=== PATIENT | male | born 1965 | race Caucasian/White ===

== ENCOUNTER 2018-11-29 06:10 | Inpatient (IN) | payer OTHER ==
[~2018-11-29] VITALS: Ht 180.3 cm; Wt 65.8 kg
[~2018-11-29 06:10] MED LIST: ABILIFY IM; FERR325T72 PO; LEVO88TA2 PO; PANT40TA77 PO
[2018-11-29] MEDS ORDERED: IV NORMAL SALINE 1000ML BAG 1,000 ML IV SCH (11:21)
[2018-11-29] MEDS ORDERED: ZOLPIDEM 5 MG TABLET. PO PRN (11:30)
[2018-11-29] MEDS ORDERED: MAG HYDROX/ALUMINUM HYD/SIMETH 30 ML ORAL.SUSP PO PRN (11:30)
[2018-11-29] MEDS ORDERED: ONDANSETRON PF 4 MG/2 ML VIAL. IV PRN (11:30)
[2018-11-29] MEDS ORDERED: oxyCODONE IR 5 MG TABLET PO PRN (11:30)
[2018-11-29] MEDS ORDERED: MORPHINE SULFATE 2 MG/ML VIAL. IV PRN (11:30)
[2018-11-29] MEDS ORDERED: PANTOPRAZOLE IV PUSH 40 MG VIAL. IVP ONE (11:30)
[2018-11-29] MEDS ORDERED: PANTOPRAZOLE SODIUM IV DRIP 80 MG in IV NORMAL SALINE 100ML 100 ML IV SCH (11:30)
[2018-11-29] MEDS ORDERED: PROCHLORPERAZINE 10 MG/2 ML VIAL. IV PRN (11:30)
[2018-11-29] MEDS ORDERED: OCTREOTIDE 500 MCG in IV NORMAL SALINE 100ML 100 ML IV PRN (11:30)
[2018-11-29] MEDS ORDERED: ACETAMINOPHEN 325 MG TABLET. PO PRN (11:30)
[2018-11-29 11:35] VITALS: BP 112/70
[2018-11-29] MEDS ORDERED: ABILIFY 400 MG IM (12:40)
[2018-11-29] MEDS ORDERED: RISP1TAB43 PO (12:40)
--- NOTE | 2018-11-29 12:57 | NUR ---
Allergies and reactions INR 1.1 BUN 18 Cr 0.8 Platelets 454 Blood culture done N/A blood culture results Order Verified yes Consent signed yes Previous PICC placement yes- right upper arm Past Medical/Surgical history and current diagnosis reviewed yes Patient Medical /Surgical History Related to PICC line placement History of bleeding, bruising, clotting disorder Past central line or venous access device placement Special considerations for PICC line placement None PICC placement indication Multiple/ Frequent blood draws, Poor peripheral intravenous access name of PICC Nurse Nancy Meléndez RN
--- NOTE | 2018-11-29 13:22 | PDOC1 ---
History and Physical Date of Admission Date of Admission DATE: 11/29/18 TIME: 13:17 Identification/Chief Complaint Chief Complaint Spitting up blood Source Source: Caregiver, Chart review, Patient History of Present Illness History of Present Illness 53-year-old white male who lives in independent living, somebody gives him his meds He takes less than 5 meds a day, history of Lissa Pagan REndau syndrome. History of PEDRO, ferrous sulfate is one of his home meds, hemoglobin 9, WBC 7 with platelets 459. Transferred from [place]. MCV is 62. Initial reports was hematemesis 3. He claims it was about 2 teaspoons. Hard stick, has had a PICC line before - I ordered one again today, hard stick per RN Needed blood transfusion before PICC team here-I have ordered BMP at [facility], unimpressive, NEg UA< MIld albumin loss VS ok Past Medical History CENTRAL NERVOUS SYSTEM: Seizure Heme/Onc: Iron deficiency Anemia, Other Psych: Schizophrenia Endocrine: Hypothyroidism Past Surgical History Past Surgical History: Other Family History Family History: Obesity Social History Smoke: No ALCOHOL: none Drugs: None Current Medications Current Medications Current Medications Sodium Chloride 1,000 ml @ 100 mls/hr Q10H IV ; Start 11/29/18 at 11:21; Stop 11/29/18 at 21:20 Ondansetron HCl (Zofran) 4 mg PRN Q6HRS PRN IV NAUSEA/VOMITING; Start 11/29/18 at 11:30 Prochlorperazine Edisylate (Compazine) 10 mg PRN Q6HRS PRN IV NAUSEA/VOMITING, 2ND CHOICE; Start 11/29/18 at 11:30 Al Hydroxide/Mg Hydroxide (Mylanta Plus Xs) 30 ml PRN Q3HRS PRN PO HEARTBURN / GAS; Start 11/29/18 at 11:30 Zolpidem Tartrate (Ambien) 5 mg PRN QHS PRN PO INSOMNIA, MAY REPEAT IN 1HR; Start 11/29/18 at 11:30 Oxycodone HCl (Roxicodone) 5 mg PRN Q3HRS PRN PO BREAKTHROUGH PAIN; Start 11/29/18 at 11:30 Morphine Sulfate (Morphine Sulfate) 1 mg PRN Q1HR PRN IV PAIN; Start 11/29/18 at 11:30 Acetaminophen (Tylenol) 650 mg PRN Q6HRS PRN PO Headaches, Temp > 101.5F; Start 11/29/18 at 11:30 Pantoprazole Sodium (PROTONIX VIAL for IV PUSH) 40 mg 1X ONCE IVP ; Start 11/29/18 at 11:30; Stop 11/29/18 at 11:31; Status DC Octreotide Acetate 500 mcg/ Sodium Chloride 101 ml @ 0 mls/hr CONT PRN IV SEE I/O RECORD; Start 11/29/18 at 11:30 Pantoprazole Sodium 80 mg/ Sodium Chloride 100 ml @ 10 mls/hr Q10H IV ; Start 11/29/18 at 11:30; Stop 11/29/18 at 21:29 Levothyroxine Sodium 44 mcg/ Sodium Chloride 5 ml @ 100 mls/hr Q3DAYS IVP ; Start 12/05/18 at 09:00 Active Scripts Active Reported Risperdal (Risperidone) 1 Mg Tablet 1 Mg PO QHS PRN [Abilify 400MG Im Inj] 400 Mg IM QMONTH Allergies Allergies: Coded Allergies: aspirin (Verified Allergy, Mild, 06/19/15) ROS Review of System As per history of present illness, the rest of ROS 14 point negative Physical Exam General: Alert, Oriented X3, Cooperative, No acute distress HEENT: Atraumatic, PERRLA, EOMI Lungs: Clear to auscultation, Normal air movement Heart: S1S2, RRR, no thrills, no rubs, no gallops, no murmurs Cardiovascular: S1, S2 Abdomen: Normal bowel sounds, Soft, No tenderness, No hepatosplenomegaly, No masses Male Genitals Exam: normal genitalia, normal prostate Rectal Exam: not examined PELVIC: Nml ext genitalia Extremities: No clubbing, No cyanosis, No edema, Normal pulses, No tenderness/swelling Skin: No rashes, No breakdown, No significant lesion Neuro: Normal gait, Normal speech, Strength at 5/5 X4 ext, Normal tone, Sensation intact, Cranial nerves 3-12 NL, Reflexes 2+ Psych/Mental Status: Mental status NL, Mood NL Vitals Vitals Vital Signs Date Time Temp Pulse Resp B/P (MAP) Pulse Ox O2 Delivery O2 Flow Rate FiO2 11/29/18 11:35 97.4 50 18 112/70 (84) 97 Room Air 97.4 VTE Prophylaxis Ordered VTE Prophylaxis Devices: Contraindicated VTE Pharmacological Prophylaxi: Contraindicated Assessment/Plan Assessment/Plan hematemesis 3 Microcytic anemia Reactive thrombocytosis Spitting up blood? Osler pagan rendau syndrome Independent living resident Moderate PCM Seizures on AED PLAN: HE is a transfer from [place], basic labs Nothing by mouth PPI drip 1 Sandostatin drip 1 I have ordered, because I thought initially this was hematemesis [address] scan reviewed Consult GI I have reconciled home meds including AEDs I think he will be okay for sips with pills Further recs pending course ok for pICC insertion dw MARGARITA DAVIS MD Nov 29, 2018 13:22
--- NOTE | 2018-11-29 13:30 | NUR ---
Procedure: Following complete explanation of the PICC procedure including the indications, risks, and potential complications, informed consent was obtained. The possibility for infection was discussed along with signs, symptoms, and prevention. All the questions were answered. Written and verbal patient education was provided. Hand hygiene performed. Standardized central line checklist was utilized. The patient was placed in the supine position, the arm was prepped with chlorhexidine and patient draped with maximum sterile barrier. 1.5 mL 1% lidocaine was infiltrated into the skin to provide local anesthesia. A thorough assessment of left upper extremity completed. Using real-time ultrasound guidance and standardized micro puncture set, the brachial vein was punctured and a peel away sheath was placed using the modified Seldinger technique. A tip location device was used to ensure adequate catheter placement. The catheter was secured using a securement device and an antimicrobial patch was applied directly on the insertion site followed by a transparent dressing. All ports withdraw blood and flush without resistance. Patient tolerated the procedure without apparent complication(s). Double Lumen Power PICC placement successful and uncomplicated. Placement verified by EKG tip confirmation system and/or chest x-ray. Tip located in the CAJ/SVC. Complications: None 43 cm inserted with 1cm visible.
[2018-11-29 14:52] LABS: PROTHROMBIN TIME PATIENT 15.6 SEC (11.7-14.0)
[2018-11-29 15:00] VITALS: BP 108/74
[2018-11-29 15:04] LABS: CALCIUM 8.3 mg/dL (8.5-10.1); GFR 78.8; POTASSIUM 4.2 mmol/L (3.5-5.1)
[2018-11-29 15:10] LABS: BASO # 0.1 x10^3/uL (0.0-0.2); BASO % 1 % (0-3); EOS # 0.1 x10^3/uL (0.0-0.7); EOS % 2 % (0-3); HEMATOCRIT 29.3 % (39.0-53.0); HEMOGLOBIN 8.6 g/dL (13.0-17.5); LYMPH # 1.7 x10^3/uL (1.0-4.8); LYMPH % 29 % (24-48); MEAN CORPUSCULAR HEMOGLOBIN 18 pg (25-35); MEAN CORPUSCULAR HGB CONC 29 g/dL (31-37); MEAN CORPUSCULAR VOLUME 60 fL (79-100); MONO # 0.3 x10^3/uL (0.0-1.1); MONO % 5 % (0-9); NEUT # 3.8 x10^3/uL (1.8-7.7); NEUT % 63 % (31-73); PLATELET COUNT 421 x10^3/uL (140-400); RED BLOOD COUNT 4.84 x10^6/uL (4.30-5.70); RED CELL DISTRIBUTION WIDTH 20.2 % (11.5-14.5)
--- NOTE | 2018-11-29 15:11 | PDOC2 ---
GI CONSULT Reason For Consult: Hematemesis x 3 HPI: HPI: 53 y/o male transferred from [facility]. Tells me he had abd pain "all over" and then "spit out" red blood last night or early this morning. Denies hemoptysis and hematemesis. "Then I almost threw up but I didn't." H/o PEDRO and Fmlnu-Czdce-Skaxk syndrome. Has epistaxis 1-2 times daily, but can't recall if this last occurred on Thursday or Thursday. H/o previous EGDs w/ cautery of AVMs, additional h/o pulmonary AVM. H/o heartburn and bloating after eating, untreated. No dysphagia. Alternating bowel habits - no hematochezia or melena. Describes some early satiety w/ stable weight. Additional h/o hypothyroidism - doesn't take medication for this because voices tell him not to (which is also why he doesn't take iron). No PUD, GB, liver, or pancreas history. No NSAIDs or ASA. No major esophageal abnormality on EGD by Dr. Brandy Kong in 05/2015. Previous notes mention colonoscopy at some point, but now he can't recall. At [facility]: BUN 18, Cr 0.8, Hgb 9, MCV 62, plt 484, RDW 20, INR 1.1. Recent Hgb in 9-10 range, some 11-12s noted earlier this year. On CT A/P w/o contrast: minimal bilateral pleural effusion (R > L), small amount of pelvic free fluid, no additional acute abnormality. Also noted unchanged hepatic cyst. No bleeding since admission per nurse. 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 FH: Family History: Other (sibling - diverticular disease) Social History: Smoke: No ALCOHOL: none Drugs: None ROS: GEN: Denies fevers, chills, sweats HEENT: +nosebleeds CV: Denies chest pain RESP: ?cough GI: Per HPI : Denies hematuria, dysuria ENDO: Denies weight changes NEURO: Denies confusion, dizziness MSK: Denies weakness, joint pain/swelling SKIN: Denies jaundice, pruritus Vitals: Vitals: Vital Signs Date Time Temp Pulse Resp B/P (MAP) Pulse Ox O2 Delivery O2 Flow Rate FiO2 11/29/18 11:35 97.4 50 18 112/70 (84) 97 Room Air 97.4 Labs: Labs: Laboratory Tests Test 11/29/18 14:35 Prothrombin Time 15.6 SEC (11.7-14.0) Prothromb Time International Ratio 1.3 (0.8-1.1) Allergies: Coded Allergies: aspirin (Verified Allergy, Mild, 06/19/15) Medications: Current Medications Medications (Trade) Dose Ordered Sig/Jose Route PRN Reason Start Time Stop Time Status Last Admin Dose Admin Sodium Chloride 1,000 ml @ 100 mls/hr Q10H IV 11/29/18 11:21 11/29/18 21:20 11/29/18 14:39 Pantoprazole Sodium (PROTONIX VIAL for IV PUSH) 40 mg 1X ONCE IVP 11/29/18 11:30 11/29/18 11:31 DC 11/29/18 14:39 Octreotide Acetate 500 mcg/ Sodium Chloride 101 ml @ 0 mls/hr CONT PRN IV SEE I/O RECORD 11/29/18 11:30 11/29/18 14:41 DC 11/29/18 14:41 Pantoprazole Sodium 80 mg/ Sodium Chloride 100 ml @ 10 mls/hr Q10H IV 11/29/18 11:30 11/29/18 21:29 11/29/18 14:41 PE: GEN: NAD HEENT: Atraumatic, PERRLA LUNGS: CTAB HEART: RRR, no murmurs ABD: NABS, S/ND/NT, no masses EXTREMITY: No edema SKIN: No rashes, no jaundice NEURO/PSYCH: A & O 3 A/P: A/P: H/o OWR w/ gut and pulm AVMs Chronic PEDRO Frequent nosebleeds Hypothyroidism Schizophrenia CRC screen - unclear Hepatic cyst -- Suspect historian though not clearly "hematemesis." Observe. Continue PPI in some form. Iron if he'd take it. JOY BUITRAGO Nov 29, 2018 15:11
[2018-11-29 15:44] LABS: ANISOCYTOSIS MOD; HYPOCHROMIA MARKED; MICROCYTOSIS MARKED; PLT ESTIMATE INCREASED (ADEQUATE)
[2018-11-29 15:45] LABS: OVALOCYTES OCC
[2018-11-29 19:49] VITALS: BP 108/62
[2018-11-29 23:33] VITALS: BP 102/62
[2018-11-30 03:45] VITALS: BP 104/64
[2018-11-30 06:45] LABS: BASO % 1 % (0-3); EOS # 0.1 x10^3/uL (0.0-0.7); EOS % 2 % (0-3); HEMATOCRIT 30.5 % (39.0-53.0); HEMOGLOBIN 8.7 g/dL (13.0-17.5); LYMPH # 1.5 x10^3/uL (1.0-4.8); LYMPH % 21 % (24-48); MEAN CORPUSCULAR HEMOGLOBIN 18 pg (25-35); MEAN CORPUSCULAR HGB CONC 29 g/dL (31-37); MEAN CORPUSCULAR VOLUME 61 fL (79-100); MONO # 0.4 x10^3/uL (0.0-1.1); MONO % 6 % (0-9); NEUT # 5.1 x10^3/uL (1.8-7.7); NEUT % 70 % (31-73); PLATELET COUNT 387 x10^3/uL (140-400); RED BLOOD COUNT 4.98 x10^6/uL (4.30-5.70); RED CELL DISTRIBUTION WIDTH 20.3 % (11.5-14.5); WHITE BLOOD COUNT 7.2 x10^3/uL (4.0-11.0)
[2018-11-30 06:53] LABS: CALCIUM 8.1 mg/dL (8.5-10.1); CREATININE 1.1 mg/dL (0.7-1.3); GFR 70.6; POTASSIUM 4.2 mmol/L (3.5-5.1)
[2018-11-30 07:00] VITALS: BP_SYST 107; BP_SYST 134; BP_DIAS 60
[2018-11-30] MEDS ORDERED: PANTOPRAZOLE IV PUSH 40 MG VIAL. IVP SCH (09:30)
[2018-11-30] MEDS ORDERED: IV NORMAL SALINE 1000ML BAG 1,000 ML IV SCH (10:00)
[2018-11-30 11:00] VITALS: BP 95/63
--- NOTE | 2018-11-30 11:07 | PDOC ---
Subjective: Subjective: "I was feeling weak but now I'm stronger." Was up walking. No bleeding. Maybe a little upper abd discomfort. Hungry. Objective: Objective: No bleeding per nurse. Vital Signs: Vital Signs Date Time Temp Pulse Resp B/P (MAP) Pulse Ox O2 Delivery O2 Flow Rate FiO2 11/30/18 07:00 98.1 74 18 134/60 (84) 95 Room Air 98.1 Labs: Laboratory Tests Test 11/29/18 14:35 11/30/18 06:00 White Blood Count 6.0 x10^3/uL 7.2 x10^3/uL Red Blood Count 4.84 x10^6/uL 4.98 x10^6/uL Hemoglobin 8.6 g/dL 8.7 g/dL Hematocrit 29.3 % 30.5 % Mean Corpuscular Volume 60 fL 61 fL Mean Corpuscular Hemoglobin 18 pg 18 pg Mean Corpuscular Hemoglobin Concent 29 g/dL 29 g/dL Red Cell Distribution Width 20.2 % 20.3 % Platelet Count 421 x10^3/uL 387 x10^3/uL Neutrophils (%) (Auto) 63 % 70 % Lymphocytes (%) (Auto) 29 % 21 % Monocytes (%) (Auto) 5 % 6 % Eosinophils (%) (Auto) 2 % 2 % Basophils (%) (Auto) 1 % 1 % Neutrophils # (Auto) 3.8 x10^3/uL 5.1 x10^3/uL Lymphocytes # (Auto) 1.7 x10^3/uL 1.5 x10^3/uL Monocytes # (Auto) 0.3 x10^3/uL 0.4 x10^3/uL Eosinophils # (Auto) 0.1 x10^3/uL 0.1 x10^3/uL Basophils # (Auto) 0.1 x10^3/uL 0.0 x10^3/uL Platelet Estimate Increased Hypochromasia Marked Anisocytosis Mod Microcytosis Marked Ovalocytes Occ Prothrombin Time 15.6 SEC Prothromb Time International Ratio 1.3 Sodium Level 136 mmol/L 138 mmol/L Potassium Level 4.2 mmol/L 4.2 mmol/L Chloride Level 102 mmol/L 104 mmol/L Carbon Dioxide Level 27 mmol/L 25 mmol/L Anion Gap 7 9 Blood Urea Nitrogen 17 mg/dL 20 mg/dL Creatinine 1.0 mg/dL 1.1 mg/dL Estimated GFR (Cockcroft-Gault) 78.8 70.6 Glucose Level 76 mg/dL 61 mg/dL Calcium Level 8.3 mg/dL 8.1 mg/dL Hepatitis A IgM Antibody Nonreactive Hepatitis B Surface Antigen Nonreactive Hepatitis B Core IgM Antibody Nonreactive Hepatitis C IgG Antibody Nonreactive PE: GEN: NAD LUNGS: CTAB HEART: RRR ABD: NABS, S/ND/NT NEURO/PSYCH: A & O 3, flat A/P: H/o OWR w/ gut and pulm AVMs Chronic PEDRO - stable Schizophrenia -- No ongoing concern for GI bleeding. Try karin ADASilvestre, PO PPI. JOY BUITRAGO Nov 30, 2018 11:06
--- NOTE | 2018-11-30 11:45 | PDOC ---
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-on ferrous sulfate as home meds Plan: Agree with liquid diet H&H tomorrow If stable might be able to go back to independent living tomorrow Vitals Vitals Vital Signs Date Time Temp Pulse Resp B/P (MAP) Pulse Ox O2 Delivery O2 Flow Rate FiO2 11/30/18 11:00 97.6 66 20 95/63 (74) 99 Room Air 97.6 Physical Exam General: Alert, Oriented X3, Cooperative, No acute distress Lungs: Clear Abdomen: Normal bowel sounds, Soft, No tenderness, No hepatosplenomegaly, No masses Extremities: No clubbing, No cyanosis, No edema, Normal pulses, No tenderness/swelling Skin: No rashes, No breakdown, No significant lesion Labs LABS Laboratory Tests Test 11/29/18 14:35 11/30/18 06:00 White Blood Count 6.0 x10^3/uL (4.0-11.0) 7.2 x10^3/uL (4.0-11.0) Red Blood Count 4.84 x10^6/uL (4.30-5.70) 4.98 x10^6/uL (4.30-5.70) Hemoglobin 8.6 g/dL (13.0-17.5) 8.7 g/dL (13.0-17.5) Hematocrit 29.3 % (39.0-53.0) 30.5 % (39.0-53.0) Mean Corpuscular Volume 60 fL (79-100) 61 fL (79-100) Mean Corpuscular Hemoglobin 18 pg (25-35) 18 pg (25-35) Mean Corpuscular Hemoglobin Concent 29 g/dL (31-37) 29 g/dL (31-37) Red Cell Distribution Width 20.2 % (11.5-14.5) 20.3 % (11.5-14.5) Platelet Count 421 x10^3/uL (140-400) 387 x10^3/uL (140-400) Neutrophils (%) (Auto) 63 % (31-73) 70 % (31-73) Lymphocytes (%) (Auto) 29 % (24-48) 21 % (24-48) Monocytes (%) (Auto) 5 % (0-9) 6 % (0-9) Eosinophils (%) (Auto) 2 % (0-3) 2 % (0-3) Basophils (%) (Auto) 1 % (0-3) 1 % (0-3) Neutrophils # (Auto) 3.8 x10^3/uL (1.8-7.7) 5.1 x10^3/uL (1.8-7.7) Lymphocytes # (Auto) 1.7 x10^3/uL (1.0-4.8) 1.5 x10^3/uL (1.0-4.8) Monocytes # (Auto) 0.3 x10^3/uL (0.0-1.1) 0.4 x10^3/uL (0.0-1.1) Eosinophils # (Auto) 0.1 x10^3/uL (0.0-0.7) 0.1 x10^3/uL (0.0-0.7) Basophils # (Auto) 0.1 x10^3/uL (0.0-0.2) 0.0 x10^3/uL (0.0-0.2) Platelet Estimate Increased (ADEQUATE) Hypochromasia Marked Anisocytosis Mod Microcytosis Marked Ovalocytes Occ Prothrombin Time 15.6 SEC (11.7-14.0) Prothromb Time International Ratio 1.3 (0.8-1.1) Sodium Level 136 mmol/L (136-145) 138 mmol/L (136-145) Potassium Level 4.2 mmol/L (3.5-5.1) 4.2 mmol/L (3.5-5.1) Chloride Level 102 mmol/L (98-107) 104 mmol/L (98-107) Carbon Dioxide Level 27 mmol/L (21-32) 25 mmol/L (21-32) Anion Gap 7 (6-14) 9 (6-14) Blood Urea Nitrogen 17 mg/dL (8-26) 20 mg/dL (8-26) Creatinine 1.0 mg/dL (0.7-1.3) 1.1 mg/dL (0.7-1.3) Estimated GFR (Cockcroft-Gault) 78.8 70.6 Glucose Level 76 mg/dL (70-99) 61 mg/dL (70-99) Calcium Level 8.3 mg/dL (8.5-10.1) 8.1 mg/dL (8.5-10.1) Hepatitis A IgM Antibody Nonreactive (Nonreactive) Hepatitis B Surface Antigen Nonreactive (Nonreactive) Hepatitis B Core IgM Antibody Nonreactive (Nonreactive) Hepatitis C IgG Antibody Nonreactive (Nonreactive) Review of Systems Review of Systems A 14 point ROS was completed with the following noted as positive: Other systems reviewed and negative. \CONSTITUTIONAL: No fever or chills EYES: No recent changes SKIN: No rash or itching CARDIOVASCULAR: No chest pain, syncope, palpitations, or edema RESPIRATORY: No SOB or cough GASTROINTESTINAL: No nausea, vomiting or abdominal pain NEUROLOGICAL: No headaches or weakness ENDOCRINE: No cold or heat intolerance GENITOURINARY: No urgency or frequency of urination MUSCULOSKELETAL: No back pain or joint pain LYMPHATICS: No enlarged lymph nodes PSYCHIATRIC: No anxiety or depression Comment Review of Relevant I have reviewed the following items jayesh (where applicable) has been applied. Labs Laboratory Tests Test 11/29/18 14:35 11/30/18 06:00 White Blood Count 6.0 x10^3/uL (4.0-11.0) 7.2 x10^3/uL (4.0-11.0) Red Blood Count 4.84 x10^6/uL (4.30-5.70) 4.98 x10^6/uL (4.30-5.70) Hemoglobin 8.6 g/dL (13.0-17.5) 8.7 g/dL (13.0-17.5) Hematocrit 29.3 % (39.0-53.0) 30.5 % (39.0-53.0) Mean Corpuscular Volume 60 fL (79-100) 61 fL (79-100) Mean Corpuscular Hemoglobin 18 pg (25-35) 18 pg (25-35) Mean Corpuscular Hemoglobin Concent 29 g/dL (31-37) 29 g/dL (31-37) Red Cell Distribution Width 20.2 % (11.5-14.5) 20.3 % (11.5-14.5) Platelet Count 421 x10^3/uL (140-400) 387 x10^3/uL (140-400) Neutrophils (%) (Auto) 63 % (31-73) 70 % (31-73) Lymphocytes (%) (Auto) 29 % (24-48) 21 % (24-48) Monocytes (%) (Auto) 5 % (0-9) 6 % (0-9) Eosinophils (%) (Auto) 2 % (0-3) 2 % (0-3) Basophils (%) (Auto) 1 % (0-3) 1 % (0-3) Neutrophils # (Auto) 3.8 x10^3/uL (1.8-7.7) 5.1 x10^3/uL (1.8-7.7) Lymphocytes # (Auto) 1.7 x10^3/uL (1.0-4.8) 1.5 x10^3/uL (1.0-4.8) Monocytes # (Auto) 0.3 x10^3/uL (0.0-1.1) 0.4 x10^3/uL (0.0-1.1) Eosinophils # (Auto) 0.1 x10^3/uL (0.0-0.7) 0.1 x10^3/uL (0.0-0.7) Basophils # (Auto) 0.1 x10^3/uL (0.0-0.2) 0.0 x10^3/uL (0.0-0.2) Platelet Estimate Increased (ADEQUATE) Hypochromasia Marked Anisocytosis Mod Microcytosis Marked Ovalocytes Occ Prothrombin Time 15.6 SEC (11.7-14.0) Prothromb Time International Ratio 1.3 (0.8-1.1) Sodium Level 136 mmol/L (136-145) 138 mmol/L (136-145) Potassium Level 4.2 mmol/L (3.5-5.1) 4.2 mmol/L (3.5-5.1) Chloride Level 102 mmol/L (98-107) 104 mmol/L (98-107) Carbon Dioxide Level 27 mmol/L (21-32) 25 mmol/L (21-32) Anion Gap 7 (6-14) 9 (6-14) Blood Urea Nitrogen 17 mg/dL (8-26) 20 mg/dL (8-26) Creatinine 1.0 mg/dL (0.7-1.3) 1.1 mg/dL (0.7-1.3) Estimated GFR (Cockcroft-Gault) 78.8 70.6 Glucose Level 76 mg/dL (70-99) 61 mg/dL (70-99) Calcium Level 8.3 mg/dL (8.5-10.1) 8.1 mg/dL (8.5-10.1) Hepatitis A IgM Antibody Nonreactive (Nonreactive) Hepatitis B Surface Antigen Nonreactive (Nonreactive) Hepatitis B Core IgM Antibody Nonreactive (Nonreactive) Hepatitis C IgG Antibody Nonreactive (Nonreactive) Laboratory Tests Test 11/29/18 14:35 11/30/18 06:00 White Blood Count 6.0 x10^3/uL (4.0-11.0) 7.2 x10^3/uL (4.0-11.0) Red Blood Count 4.84 x10^6/uL (4.30-5.70) 4.98 x10^6/uL (4.30-5.70) Hemoglobin 8.6 g/dL (13.0-17.5) 8.7 g/dL (13.0-17.5) Hematocrit 29.3 % (39.0-53.0) 30.5 % (39.0-53.0) Mean Corpuscular Volume 60 fL (79-100) 61 fL (79-100) Mean Corpuscular Hemoglobin 18 pg (25-35) 18 pg (25-35) Mean Corpuscular Hemoglobin Concent 29 g/dL (31-37) 29 g/dL (31-37) Red Cell Distribution Width 20.2 % (11.5-14.5) 20.3 % (11.5-14.5) Platelet Count 421 x10^3/uL (140-400) 387 x10^3/uL (140-400) Neutrophils (%) (Auto) 63 % (31-73) 70 % (31-73) Lymphocytes (%) (Auto) 29 % (24-48) 21 % (24-48) Monocytes (%) (Auto) 5 % (0-9) 6 % (0-9) Eosinophils (%) (Auto) 2 % (0-3) 2 % (0-3) Basophils (%) (Auto) 1 % (0-3) 1 % (0-3) Neutrophils # (Auto) 3.8 x10^3/uL (1.8-7.7) 5.1 x10^3/uL (1.8-7.7) Lymphocytes # (Auto) 1.7 x10^3/uL (1.0-4.8) 1.5 x10^3/uL (1.0-4.8) Monocytes # (Auto) 0.3 x10^3/uL (0.0-1.1) 0.4 x10^3/uL (0.0-1.1) Eosinophils # (Auto) 0.1 x10^3/uL (0.0-0.7) 0.1 x10^3/uL (0.0-0.7) Basophils # (Auto) 0.1 x10^3/uL (0.0-0.2) 0.0 x10^3/uL (0.0-0.2) Platelet Estimate Increased (ADEQUATE) Hypochromasia Marked Anisocytosis Mod Microcytosis Marked Ovalocytes Occ Prothrombin Time 15.6 SEC (11.7-14.0) Prothromb Time International Ratio 1.3 (0.8-1.1) Sodium Level 136 mmol/L (136-145) 138 mmol/L (136-145) Potassium Level 4.2 mmol/L (3.5-5.1) 4.2 mmol/L (3.5-5.1) Chloride Level 102 mmol/L (98-107) 104 mmol/L (98-107) Carbon Dioxide Level 27 mmol/L (21-32) 25 mmol/L (21-32) Anion Gap 7 (6-14) 9 (6-14) Blood Urea Nitrogen 17 mg/dL (8-26) 20 mg/dL (8-26) Creatinine 1.0 mg/dL (0.7-1.3) 1.1 mg/dL (0.7-1.3) Estimated GFR (Cockcroft-Gault) 78.8 70.6 Glucose Level 76 mg/dL (70-99) 61 mg/dL (70-99) Calcium Level 8.3 mg/dL (8.5-10.1) 8.1 mg/dL (8.5-10.1) Hepatitis A IgM Antibody Nonreactive (Nonreactive) Hepatitis B Surface Antigen Nonreactive (Nonreactive) Hepatitis B Core IgM Antibody Nonreactive (Nonreactive) Hepatitis C IgG Antibody Nonreactive (Nonreactive) Medications Current Medications Sodium Chloride 1,000 ml @ 100 mls/hr Q10H IV Last administered on 11/29/18at 14:39; Start 11/29/18 at 11:21; Stop 11/29/18 at 21:20; Status DC Ondansetron HCl (Zofran) 4 mg PRN Q6HRS PRN IV NAUSEA/VOMITING; Start 11/29/18 at 11:30 Prochlorperazine Edisylate (Compazine) 10 mg PRN Q6HRS PRN IV NAUSEA/VOMITING, 2ND CHOICE; Start 11/29/18 at 11:30 Al Hydroxide/Mg Hydroxide (Mylanta Plus Xs) 30 ml PRN Q3HRS PRN PO HEARTBURN / GAS; Start 11/29/18 at 11:30 Zolpidem Tartrate (Ambien) 5 mg PRN QHS PRN PO INSOMNIA, MAY REPEAT IN 1HR; Start 11/29/18 at 11:30 Oxycodone HCl (Roxicodone) 5 mg PRN Q3HRS PRN PO BREAKTHROUGH PAIN; Start 11/29/18 at 11:30 Morphine Sulfate (Morphine Sulfate) 1 mg PRN Q1HR PRN IV PAIN; Start 11/29/18 at 11:30 Acetaminophen (Tylenol) 650 mg PRN Q6HRS PRN PO Headaches, Temp > 101.5F; Start 11/29/18 at 11:30 Pantoprazole Sodium (PROTONIX VIAL for IV PUSH) 40 mg 1X ONCE IVP Last a dministered on 11/29/18at 14:39; Start 11/29/18 at 11:30; Stop 11/29/18 at 11:31; Status DC Octreotide Acetate 500 mcg/ Sodium Chloride 101 ml @ 0 mls/hr CONT PRN IV SEE I/O RECORD Last administered on 11/29/18at 14:41; Start 11/29/18 at 11:30; Stop 11/29/18 at 14:41; Status DC Pantoprazole Sodium 80 mg/ Sodium Chloride 100 ml @ 10 mls/hr Q10H IV Last administered on 11/29/18at 14:41; Start 11/29/18 at 11:30; Stop 11/29/18 at 21:29; Status DC Levothyroxine Sodium 44 mcg/ Sodium Chloride 5 ml @ 100 mls/hr Q3DAYS IVP ; Start 12/05/18 at 09:00 Pantoprazole Sodium (PROTONIX VIAL for IV PUSH) 40 mg DAILYAC IVP Last administered on 11/30/18at 10:06; Start 11/30/18 at 09:30; Stop 11/30/18 at 11:06; Status DC Sodium Chloride 1,000 ml @ 100 mls/hr Q10H IV Last administered on 11/30/18at 10:03; Start 11/30/18 at 10:00 Pantoprazole Sodium (Protonix) 40 mg DAILYAC PO ; Start 12/01/18 at 07:30 Active Scripts Active Reported Risperdal (Risperidone) 1 Mg Tablet 1 Mg PO QHS PRN [Abilify 400MG Im Inj] 400 Mg IM QMONTH Vitals/I & O Vital Sign - Last 24 Hours 11/29/18 11/29/18 11/29/18 11/29/18 15:00 19:49 20:00 23:33 Temp 98.1 97.6 97.5 98.1 97.6 97.5 Pulse 52 61 62 Resp 18 16 16 B/P (MAP) 108/74 (85) 108/62 (77) 102/62 (75) Pulse Ox 92 98 96 O2 Delivery Room Air Room Air Room Air Room Air 11/30/18 11/30/18 11/30/18 11/30/18 03:45 07:00 07:00 08:00 Temp 97.5 97.9 98.1 97.5 97.9 98.1 Pulse 65 100 74 Resp 18 20 18 B/P (MAP) 104/64 (77) 107/60 (76) 134/60 (84) Pulse Ox 96 97 95 O2 Delivery Room Air Room Air Room Air Room Air 11/30/18 11:00 Temp 97.6 97.6 Pulse 66 Resp 20 B/P (MAP) 95/63 (74) Pulse Ox 99 O2 Delivery Room Air Intake and Output 11/29/18 11/29/18 11/30/18 15:00 23:00 07:00 Intake Total 0 ml 41 ml Balance 0 ml 41 ml MARGARITA HILL MD Nov 30, 2018 11:44
[2018-11-30 15:00] VITALS: BP 97/59
--- NOTE | 2018-11-30 16:20 | NUR ---
SW following pt for dc planning. Chart reviewed. Pt lives at home and GI following. No SW needs noted at this time.
[2018-11-30 19:35] VITALS: BP 142/58
[2018-11-30 23:35] VITALS: BP 106/63
[2018-12-01 03:40] VITALS: BP 105/55
[2018-12-01] MEDS ORDERED: PANTOPRAZOLE 40 MG TABLET.DR. PO SCH (07:30)
[2018-12-01 07:57] VITALS: BP 101/54
[2018-12-01] MEDS ORDERED: PANT40TA77 PO (09:28)
[2018-12-01] MEDS ORDERED: LEVOTHYROXINE 88 MCG TABLET PO SCH (10:00)
[2018-12-01 11:50] VITALS: BP 117/60
[2018-12-01] MEDS ORDERED: FERR325T14 PO (12:34)
--- NOTE | 2018-12-01 12:36 | PDOC3 ---
Discharge Summary Visit Information Date of Admission: Nov 29, 2018 Date of Discharge: Dec 01, 2018 Admitting Diagnosis Comment: Microcytic anemia Reactive thrombocytosis Spitting up blood? Osler pagan rendau syndrome Independent living resident Moderate PCM Seizures on AED Brief Hospital Course Allergies Allergies Coded Allergies Type Severity Reaction Last Updated Verified aspirin Allergy Mild 06/19/15 Yes Vital Signs Vital Signs Date Time Temp Pulse Resp B/P (MAP) Pulse Ox O2 Delivery O2 Flow Rate FiO2 12/01/18 11:50 97.5 67 18 117/60 (79) 99 Room Air 97.5 Lab Results Laboratory Tests Test 11/29/18 14:35 11/30/18 06:00 White Blood Count 6.0 x10^3/uL (4.0-11.0) 7.2 x10^3/uL (4.0-11.0) Red Blood Count 4.84 x10^6/uL (4.30-5.70) 4.98 x10^6/uL (4.30-5.70) Hemoglobin 8.6 g/dL (13.0-17.5) 8.7 g/dL (13.0-17.5) Hematocrit 29.3 % (39.0-53.0) 30.5 % (39.0-53.0) Mean Corpuscular Volume 60 fL (79-100) 61 fL (79-100) Mean Corpuscular Hemoglobin 18 pg (25-35) 18 pg (25-35) Mean Corpuscular Hemoglobin Concent 29 g/dL (31-37) 29 g/dL (31-37) Red Cell Distribution Width 20.2 % (11.5-14.5) 20.3 % (11.5-14.5) Platelet Count 421 x10^3/uL (140-400) 387 x10^3/uL (140-400) Neutrophils (%) (Auto) 63 % (31-73) 70 % (31-73) Lymphocytes (%) (Auto) 29 % (24-48) 21 % (24-48) Monocytes (%) (Auto) 5 % (0-9) 6 % (0-9) Eosinophils (%) (Auto) 2 % (0-3) 2 % (0-3) Basophils (%) (Auto) 1 % (0-3) 1 % (0-3) Neutrophils # (Auto) 3.8 x10^3/uL (1.8-7.7) 5.1 x10^3/uL (1.8-7.7) Lymphocytes # (Auto) 1.7 x10^3/uL (1.0-4.8) 1.5 x10^3/uL (1.0-4.8) Monocytes # (Auto) 0.3 x10^3/uL (0.0-1.1) 0.4 x10^3/uL (0.0-1.1) Eosinophils # (Auto) 0.1 x10^3/uL (0.0-0.7) 0.1 x10^3/uL (0.0-0.7) Basophils # (Auto) 0.1 x10^3/uL (0.0-0.2) 0.0 x10^3/uL (0.0-0.2) Platelet Estimate Increased (ADEQUATE) Hypochromasia Marked Anisocytosis Mod Microcytosis Marked Ovalocytes Occ Prothrombin Time 15.6 SEC (11.7-14.0) Prothromb Time International Ratio 1.3 (0.8-1.1) Sodium Level 136 mmol/L (136-145) 138 mmol/L (136-145) Potassium Level 4.2 mmol/L (3.5-5.1) 4.2 mmol/L (3.5-5.1) Chloride Level 102 mmol/L (98-107) 104 mmol/L (98-107) Carbon Dioxide Level 27 mmol/L (21-32) 25 mmol/L (21-32) Anion Gap 7 (6-14) 9 (6-14) Blood Urea Nitrogen 17 mg/dL (8-26) 20 mg/dL (8-26) Creatinine 1.0 mg/dL (0.7-1.3) 1.1 mg/dL (0.7-1.3) Estimated GFR (Cockcroft-Gault) 78.8 70.6 Glucose Level 76 mg/dL (70-99) 61 mg/dL (70-99) Calcium Level 8.3 mg/dL (8.5-10.1) 8.1 mg/dL (8.5-10.1) Hepatitis A IgM Antibody Nonreactive (Nonreactive) Hepatitis B Surface Antigen Nonreactive (Nonreactive) Hepatitis B Core IgM Antibody Nonreactive (Nonreactive) Hepatitis C IgG Antibody Nonreactive (Nonreactive) Brief Hospital Course Mr. 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 admitted because of initial reports of hematemesis but is actually spitting up blood. No reports of epistaxis. Most common in [facility] is PEDRO hence I have prescribed some PPI and ferrous sulfate. Comanagement GI, was only observation status conservative management. Spitting up blood resolved on its own. Some anemia that is stable. She is to go back to independent living continues AED. New prescription is his PPI and ferrous sulfate once a day Consults performed GI procedure performed none Time spent discharge less than 30 minutes Discharge Information Condition at Discharge: Improved, Stable Disposition/Orders: D/C to Home Scheduled Ferrous Sulfate (Ferrous Sulfate) 325 Mg Tablet, 1 TAB PO DAILY for anemia, #30 Ref 3 Prescribed by: MARGARITA HILL on 12/01/18 1234 Pantoprazole Sodium (Pantoprazole Sodium ) 40 Mg Tablet.dr, 40 MG PO DAILYAC for gi bleed, #90 Prescribed by: MARGARITA HILL on 12/01/18 0928 [Abilify 400MG Im Inj] , 400 MG IM QMONTH for UNKNOWN, (Reported) Entered as Reported by: TL MALIN on 11/29/181239 Last Taken: Unknown Dose on Unknown Date & Time Last Action: New Order on 11/29/181239 by TL MALIN Scheduled PRN Risperidone (Risperdal) 1 Mg Tablet, 1 MG PO QHS PRN for INSOMNIA, (Reported) Entered as Reported by: TL MALIN on 11/29/18 124 Last Action: New Order on 11/29/181239 by MARGARITA FREEMAN MD Dec 01, 2018 12:36
--- NOTE | 2018-12-01 15:20 | NUR ---
Discharge Note: TAMI PHILLIP [address] Discharge instructions and discharge home medications reviewed with Patient and a copy given. All questions have been answered and understanding verbalized. This nurse asked pt. if he would like her to call in his prescriptions. Pt. declined stating "I will take them in myself." The following instructions and handouts were given: Hematemesis, Gastrointestinal bleeding, iron deficiency anemia. Discontinued lines and drains: PICC line in LUE removed. Pressure dressing applied. No complications, catheter intact. Addendum: 12/01/18 at 1549 by CURRY DICKERSON RN Pt. discharged to home with self-care via ambulation to [facility]. This nurse verified pt. had all belongings before leaving the floor. This nurse walked with pt. to main entrance. Pt. walked with steady gait.
[2018-12-05] MEDS ORDERED: NORMAL SALINE IVP SCH (09:00)
[2018-12-05] MEDS ORDERED: LEVOTHYROXINE SODIUM IVP SCH (09:00)
== END 2018-12-01 15:45 | disposition home or self-care (01) | DRG 300 ==
LOC: 6 SOUTH 06:10
PROVIDERS: ADMIT Internal Medicine; ATTEND Internal Medicine
PROC: 02HV33Z Insertion of Infusion Device into Superior Vena Cava, Percutaneous Approach (ICD-10-PCS; principal; 2018-11-29)
PROC: B548ZZA Ultrasonography of Superior Vena Cava, Guidance (ICD-10-PCS; 2018-11-29)
DX: I78.0 Hereditary hemorrhagic telangiectasia (principal); E44.0 Moderate protein-calorie malnutrition; R04.2 Hemoptysis; D50.9 Iron deficiency anemia, unspecified; E03.9 Hypothyroidism, unspecified; F20.9 Schizophrenia, unspecified; D47.3 Essential (hemorrhagic) thrombocythemia; K76.89 Other specified diseases of liver; R56.9 Unspecified convulsions; Z88.8 Allergy status to other drugs, medicaments and biological substances; Z79.899 Other long term (current) drug therapy; Z68.20 Body mass index [BMI] 20.0-20.9, adult
CPT/HCPCS: 36415; 36569; 80048; 85025; 85610; 86705; 86709; 86803; 87340; C9113; J2354; J7030

== ENCOUNTER 2019-02-21 10:21 | Inpatient (IN) | payer OTHER ==
[~2019-02-21] VITALS: Ht 180.3 cm; Wt 63.6 kg
[~2019-02-21 10:21] MED LIST changes: +ABILIFY 400 MG IM; +FERR325T14 PO; +RISP1TAB43 PO
[2019-02-21 12:15] VITALS: BP 112/64
[2019-02-21] MEDS ORDERED: ONDANSETRON PF 4 MG/2 ML VIAL. IVP PRN (13:45)
[2019-02-21] MEDS ORDERED: fentaNYL PF VIAL 100 MCG/2 ML VIAL IVP PRN (13:45)
--- NOTE | 2019-02-21 14:40 | PDOC2 ---
GI CONSULT Reason For Consult: Hematemesis HPI: HPI: 54 y/o male transferred from [facility] - we have seen in the past. He says he vomited 1/2 cup of red blood this morning and developed a nose bleed while vomiting. After, had some pain (rated 2/10) in mid abdomen. Denies hemoptysis. Labs at [facility] include Hgb 8.5, MCV 60, plt 513, BUN 13, Cr 1, INR 1. H/o PEDRO and Dcktl-Kgoim-Ekxqx syndrome - has frequent epistaxis. Baseline Hgb in 8-9 range. Additional h/o hypothyroidism - noncompliant w/ medication for this and w/ iron - in the past has said the voices tell him not to take these pills. Previously reported some intermittent post-prandial heartburn and bloating. No dysphagia, diarrhea, constipation, hematochezia, melena, weight loss, or change in appetite. Past EGDs w/ cautery of AVMs, also h/o pulmonary AVM. ER note suggests h/o varices; however EGD in 05/[address] ([address] Brandy Kong) showed no UGI lesions. Past documentation suggest he had a colonoscopy at some point. H/o hepatic cyst. No PUD, GB, or pancreas history. Hepatitis serologies negative in 11/2018. No NSAIDs/ASA. 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 FH: Family History: Other (sibling - diverticular disease) Social History: Smoke: No ALCOHOL: none Drugs: None ROS: GEN: Denies fevers, chills, sweats HEENT: Denies blurred vision, sore throat CV: Denies chest pain RESP: Denies shortness of air, cough GI: Per HPI : Denies hematuria, dysuria ENDO: Denies weight changes NEURO: Denies confusion, dizziness MSK: Denies weakness, joint pain/swelling SKIN: Denies jaundice, pruritus Vitals: Vitals: Vital Signs Date Time Temp Pulse Resp B/P (MAP) Pulse Ox O2 Delivery O2 Flow Rate FiO2 02/21/19 12:15 97.5 64 17 112/64 (80) 100 Room Air 97.5 Allergies: Coded Allergies: aspirin (Verified Allergy, Mild, 06/19/15) PE: GEN: NAD HEENT: Atraumatic, PERRL - dried blood on nose/upper lip LUNGS: CTAB HEART: RRR ABD: NABS, S/ND/NT EXTREMITY: No edema SKIN: No rashes, no jaundice NEURO/PSYCH: A & O 3, flat A/P: A/P: Hematemesis, epistaxis, abd pain Czzgh-Vfwvo-Bdpsc syndrome w/ gut and pulm AVMs - no UGI lesions on EGD in 2015 Chronic PEDRO, hypothyroidism, non-compliance Schizophrenia CRC screen - ? Hepatic cyst -- Hgb around baseline w/ normal BUN. ?epistaxis the cause Offered EGD for tomorrow - he is agreeable. Agree w/ IV PPI if he'll take it. JOY BUITRAGO Feb 21, 2019 14:39
[2019-02-21 15:00] VITALS: BP 97/57
--- NOTE | 2019-02-21 15:00 | NUR ---
pt admitted from [place]. denies n/v at this time. oriented to room and call light. NPO pending GI consult.
[2019-02-21] MEDS: PANTOPRAZOLE IV PUSH 40 MG VIAL. IVP SCH (15:05)
[2019-02-21] MEDS: IV RINGERS,LACTATED 1000ML 1,000 ML IV SCH (15:06)
[2019-02-21 18:15] LABS: HEMATOCRIT 28.9 % (39.0-53.0); HEMOGLOBIN 8.2 g/dL (13.0-17.5); RED BLOOD COUNT 4.9 x10^6/uL (4.30-5.70); RED CELL DISTRIBUTION WIDTH 21.1 % (11.5-14.5); WHITE BLOOD COUNT 6.5 x10^3/uL (4.0-11.0)
[2019-02-21 19:00] VITALS: BP 104/62
[2019-02-21 22:49] VITALS: BP_SYST 111; BP_SYST 92; BP_DIAS 52; BP_DIAS 64
[2019-02-22 03:00] VITALS: BP 103/65
[2019-02-22 04:41] LABS: HEMATOCRIT 27.2 % (39.0-53.0); HEMOGLOBIN 7.8 g/dL (13.0-17.5); RED BLOOD COUNT 4.64 x10^6/uL (4.30-5.70); RED CELL DISTRIBUTION WIDTH 20.7 % (11.5-14.5); WHITE BLOOD COUNT 6.2 x10^3/uL (4.0-11.0)
[2019-02-22 04:58] LABS: CALCIUM 8.3 mg/dL (8.5-10.1); CREATININE 0.9 mg/dL (0.7-1.3); GFR 88.6
[2019-02-22] MEDS: IV RINGERS,LACTATED 1000ML 1,000 ML IV SCH ×3 (05:08→21:09)
[2019-02-22] MEDS ORDERED: IV RINGERS,LACTATED 1000ML 1,000 ML IV ONE (06:45)
[2019-02-22 07:00] VITALS: BP 96/59
[2019-02-22] MEDS ORDERED: LIDOCAINE 1% PF 2 ML VIAL. ID PRN (07:00)
[2019-02-22] MEDS ORDERED: PROCHLORPERAZINE 10 MG/2 ML VIAL. IV PRN (07:00)
[2019-02-22] MEDS ORDERED: fentaNYL PF VIAL 100 MCG/2 ML VIAL IV PRN ×2 (07:00)
[2019-02-22] MEDS ORDERED: IV RINGERS,LACTATED 1000ML 1,000 ML IV SCH (07:00)
[2019-02-22] MEDS ORDERED: HYDROmorphone 2 MG/ML VIAL IV PRN (07:00)
[2019-02-22] MEDS ORDERED: MORPHINE SULFATE 2 MG/ML VIAL. IV PRN (07:00)
[2019-02-22] MEDS ORDERED: ONDANSETRON PF 4 MG/2 ML VIAL. IV PRN (07:00)
[2019-02-22] MEDS: PANTOPRAZOLE IV PUSH 40 MG VIAL. IVP SCH (08:12)
[2019-02-22] MEDS ORDERED: PROPOFOL 20 ML IV ONE (10:22)
--- NOTE | 2019-02-22 10:40 | PDOC4 ---
PROCEDURE Procedure EGD Indication: "hematemesis"/anemia/questionable h/o varices Meds: per anesthesia Findings: E--Normal totally. NO VARICES. GEJ at 43cm. G--normal D--normal to second portion. No lesions of OWR noted at exam. Fernando. well. IMP: Normal endoscopy. Suspect any hematemesis from swallowed blood/epistaxis. REC: OK to feed. IV iron? Dismiss at your discretion. SIXTO YE MD Feb 22, 2019 10:40
--- NOTE | 2019-02-22 11:59 | HP ---
ADMIT DATE: 02/21/2019 HISTORY OF PRESENT ILLNESS: The patient is a 54-year-old male patient who apparently was seen in the Emergency Room of [facility] with a complaint of hematemesis. He apparently vomited blood. He stated that he vomited about a half cup in volume. He denies having any pain. He is known to have Cnksj-Qmjza-Bwtth disease with esophageal varices that have been banded before. He denies any black tarry stool or bright red blood per rectum. He knows that he has generalized abdominal pain, but unable to characterize. Denied any rashes or easy bruising. He is not on any blood thinner. He is not taking any nonsteroidals. He was evaluated and his hemoglobin was found to be 8.5, hematocrit 30.9 with MCV of 60 and platelet count of 513,000. His most recent lab work showed that his hemoglobin was 9.4 and 33.5. He was transferred to [facility] to consult with the Gastroenterology team. PAST MEDICAL HISTORY: Significant for chronic schizophrenia. He is known to have Hbhuv-Yqoyp-Sjflg disease with recurrent GI bleed. He has microcytic hypochromic anemia, thrombocytosis and ovalocytosis. He has also hypothyroidism as well as Raynaud's phenomenon. He was admitted on several occasions with severe hypoglycemia. PAST SURGICAL HISTORY: Significant for tonsillectomy, periumbilical hernia repair, tooth extraction, esophagogastroduodenoscopy as well as colonoscopy. ALLERGIES: HE IS ALLERGIC TO ASPIRIN HE BLEEDS. MEDICATIONS: He is on Abilify injection once a month. He does not take any other medication. He does not smoke or drink alcohol. FAMILY HISTORY: He has 2 brothers, 1 older and 1 younger. His voice tells him when he can talk to them and was not talking and when not to talk to them. According to him, he has not seen his father since 1985. His mother at age of 66 because of diverticulitis. SOCIAL HISTORY: He is single, has no children, has never been . He does not smoke, drink alcohol or use any recreational drugs. He is on disability. REVIEW OF SYSTEMS: As per history of present illness. PHYSICAL EXAMINATION: GENERAL: On arrival to the Emergency Room, the patient looked pale, but no jaundice, cyanosis or thyromegaly. No jugular venous distention. No limb edema. VITAL SIGNS: Her heart rate was 64, blood pressure was 107/65, temperature was 98.5, respiratory rate was 16, and oxygen saturation was 100% on room air. HEAD, EYES, EARS, NOSE AND THROAT: Showed normocephalic, atraumatic. NECK: Supple. HEART: Showed normal first and second heart sounds. No gallop or murmur. CHEST: Clear to auscultation. No crepitation or rhonchi. ABDOMEN: Scaphoid, soft, nontender. NEUROLOGIC: He is awake, alert, responding appropriately. All cranial nerves intact. EXTREMITIES: He moves extremities without difficulty. He ambulates without assistance or assistive devices. LABORATORY DATA: His lab work showed a white cell count 6300, hemoglobin 8.5, hematocrit 31, MCV 60 and platelet count of 513,000. His chemistry showed a serum sodium 139, potassium 4.5, chloride 102, bicarbonate 26, anion gap of 11, BUN 13, creatinine 1, estimated GFR was 78 mL per minute, his glucose was 86, calcium was 9.1. Total bilirubin, AST, ALT, alkaline phosphatase were normal. Total protein was 8.2, albumin was 4.5. Lipase was 244. His prothrombin time, INR and aPTT were within normal range. Urinalysis essentially unremarkable. ASSESSMENT AND PLAN: The patient is known to have Gidbv-Akqyr-Movpu syndrome and he came to the Emergency Room of [facility] with complaint of hematemesis. He was transferred to [facility], who kept n.p.o., continued IV fluid, IV Protonix and we have consulted the Gastroenterology team for possible upper GI endoscopy. We will monitor his H and H closely and transfuse him if his hemoglobin drops to 7 or below 7. TERENCE VALDIVIA MD DR: TAMI/ac JOB#: [id number] / [id number]
[2019-02-22 15:00] VITALS: BP 110/62
--- NOTE | 2019-02-22 18:27 | PN ---
DATE: 02/22/2019 SUBJECTIVE: The patient was admitted yesterday as a transfer from [facility] Emergency Room where he presented with hematemesis. He was basically kept n.p.o., continued on IV fluid and IV Protonix. We did consult the Gastroenterology team and apparently he is scheduled for esophagogastroduodenoscopy today. PHYSICAL EXAMINATION: GENERAL: On examining him this morning, he was pale, no jaundice, cyanosis or thyromegaly. No jugular venous distension. No limb edema. VITAL SIGNS: His heart rate was 64, blood pressure was 96/59, temperature was 98, respiratory rate was 16, and oxygen saturation was 98%. The rest of clinical exam is stable. LABORATORY DATA: His lab work this morning showed a serum sodium 142, potassium 4, chloride 107, bicarbonate 28, anion gap of 7, BUN 13, creatinine 0.9, estimated GFR was 88 mL per minute. His glucose was 76 and calcium was 8.3. His white cell count was 6200, hemoglobin 7.8, hematocrit 27, MCV 59 and platelet count of 116,000. ASSESSMENT: Hematemesis versus epistaxis, Bfqbn-Zzevv-Ewlcn, severe iron deficiency anemia, marked microcytic hypochromic anemia. My plan is to arrange to check his serum iron, TIBC, as well as serum ferritin and replenish his iron stores. TERENCE VALDIVIA MD DR: TAMI/ac JOB#: [id number] / [id number]
[2019-02-22 19:00] VITALS: BP 109/61
[2019-02-22 22:59] VITALS: BP 118/64
[2019-02-23 03:33] VITALS: BP 108/56
[2019-02-23 04:08] LABS: HEMATOCRIT 27.1 % (39.0-53.0); HEMOGLOBIN 7.6 g/dL (13.0-17.5); RED BLOOD COUNT 4.61 x10^6/uL (4.30-5.70); RED CELL DISTRIBUTION WIDTH 20.5 % (11.5-14.5); WHITE BLOOD COUNT 5.7 x10^3/uL (4.0-11.0)
[2019-02-23 04:32] LABS: ALBUMIN 3.3 g/dL (3.4-5.0); ALBUMIN/GLOBULIN RATIO 1.1 (1.0-1.7); CALCIUM 8.7 mg/dL (8.5-10.1); GFR 78.5; POTASSIUM 3.8 mmol/L (3.5-5.1); TOTAL BILIRUBIN 0.5 mg/dL (0.2-1.0); TOTAL PROTEIN 6.3 g/dL (6.4-8.2)
[2019-02-23] MEDS: IV RINGERS,LACTATED 1000ML 1,000 ML IV SCH (06:34)
[2019-02-23 07:00] VITALS: BP 103/59
[2019-02-23 10:52] VITALS: BP 101/60
[2019-02-23] MEDS ORDERED: IRON SUCROSE COMPLEX 500 MG in IV NORMAL SALINE 250ML 250 ML IV ONE (11:00)
--- NOTE | 2019-02-23 11:05 | NUR ---
SS following for discharge planning. SS reviewed pt chart. Pt is from home and is currently on room air. Discharge order on the chart for home with self care.
--- NOTE | 2019-02-23 11:19 | PDOC ---
Subjective: Subjective: Tolerating PO w/o n/v. Objective: Vital Signs: Vital Signs Date Time Temp Pulse Resp B/P (MAP) Pulse Ox O2 Delivery O2 Flow Rate FiO2 02/23/19 10:52 97.7 70 18 101/60 (74) 98 Room Air 97.7 02/22/19 10:40 2 Labs: Laboratory Tests Test 02/23/19 03:15 White Blood Count 5.7 x10^3/uL Red Blood Count 4.61 x10^6/uL Hemoglobin 7.6 g/dL Hematocrit 27.1 % Mean Corpuscular Volume 59 fL Mean Corpuscular Hemoglobin 16 pg Mean Corpuscular Hemoglobin Concent 28 g/dL Red Cell Distribution Width 20.5 % Platelet Count 427 x10^3/uL Sodium Level 140 mmol/L Potassium Level 3.8 mmol/L Chloride Level 104 mmol/L Carbon Dioxide Level 29 mmol/L Anion Gap 7 Blood Urea Nitrogen 15 mg/dL Creatinine 1.0 mg/dL Estimated GFR (Cockcroft-Gault) 78.5 BUN/Creatinine Ratio 15 Glucose Level 85 mg/dL Calcium Level 8.7 mg/dL Iron Level 13 ug/dL Total Iron Binding Capacity 337 ug/dL Iron Saturation 4 % Ferritin 2 ng/mL Total Bilirubin 0.5 mg/dL Aspartate Amino Transf (AST/SGOT) 10 U/L Alanine Aminotransferase (ALT/SGPT) 11 U/L Alkaline Phosphatase 82 U/L Total Protein 6.3 g/dL Albumin 3.3 g/dL Albumin/Globulin Ratio 1.1 Imaging: EGD 02/22 E--Normal totally. NO VARICES. GEJ at 43cm. G--normal D--normal to second portion. No lesions of OWR noted at exam. IMP: Normal endoscopy. Suspect any hematemesis from swallowed blood/epistaxis. PE: GEN: NAD LUNGS: CTAB HEART: RRR ABD: NABS, S/ND/NT NEURO/PSYCH: A & O 3, flat A/P: "Hematemesis," epistaxis - no recurrence Gnecl-Vhtwr-Iodnj syndrome w/ gut and pulm AVMs - no UGI lesions on EGD yesterday Chronic PEDRO, hypothyroidism, non-compliance, schizophrenia -- DC per primary. Screening colonoscopy at some point if not done in the past. JOY BUITRAGO Feb 23, 2019 11:19
--- NOTE | 2019-02-23 15:36 | NUR ---
Discharge Note: TAMI PHILLIP Discharge instructions and discharge home medications reviewed with Patient and a copy given. All questions have been answered and understanding verbalized. The following instructions and handouts were given: Discharge Instructions, Patient Teaching, Follow Up Instructions. Patient given ride home via facility transportation Discontinued lines and drains: Right PIV removed, Catheter intact. Patient discharged to Home with Self-Care via Facility Transport
--- NOTE | 2019-03-31 13:38 | DS ---
DATE OF DISCHARGE: 02/23/2019 HOSPITAL COURSE: The patient is a 54-year-old male patient who apparently was seen at the Emergency Room of [facility] with a complaint of hematemesis. He apparently vomited blood. He stated that he vomited about half a cup in volume. He denies any pain. He is known to have Botcs-Cojxz-Vkqqu disease with esophageal varices that have been banded before. He denies any black tarry stool or bright red blood per rectum. He denied any abdominal pain. He denied any rashes or easy bruising. He is not on any blood thinner. He is not taking any nonsteroidals. He was evaluated and his hemoglobin was found to be 8.5, hematocrit was 30.9. His most recent lab work showed that his hemoglobin was 9.4, hematocrit 33.5 and was transferred to [facility] to consult the Gastroenterology team. He was in fact seen by the Gastroenterology team, underwent upper GI endoscopy for questionable hematemesis and questionable history of varices, and the esophagogastroduodenoscopy showed no evidence of varices. The gastroesophageal junction was about at 43 cm. The stomach and duodenum were normal and impression, the patient has normal endoscopy suspect any hematemesis from swallowed blood or epistaxis. The patient was given IV Venofer as he has severe microcytic hypochromic anemia due to persistent bleeding and he was discharged home to continue on oral iron. PHYSICAL EXAMINATION: On the day of discharge, the patient looked well and was clearly in no apparent distress, slightly pale, but no jaundice, cyanosis or thyromegaly. No jugular venous distention. No limb edema. His heart rate was 70, blood pressure was 101/60, temperature was 97.7, respiratory rate was 18 and oxygen saturation was 98%. The rest of clinical exam is stable. LABORATORY DATA: On discharge showed a white cell count 5700, hemoglobin 7.6, hematocrit 27, MCV 59, platelet count of 427,000. Serum sodium 140, potassium 3.8, chloride 104, bicarbonate 29, anion gap of 7, BUN 15, creatinine 1, estimated GFR was 78 mL per minute, his glucose was 85, calcium was 8.7. His serum iron was extremely low at 13, TIBC was high at 337. Iron saturation was 4%. Ferritin was only 2 mcg per mL. DISCHARGE MEDICATIONS: He was discharged home to continue on Abilify 400 mg intramuscular every month, ferrous sulfate 325 mg twice a day, Protonix 40 mg once a day, Risperdal 1 mg p.o. at bedtime. FINAL DISCHARGE DIAGNOSES: 1. Severe iron deficiency anemia, likely due to epistaxis versus hematemesis. 2. The patient is known to have hereditary hemorrhagic telangiectasia. 3. Marked microcytic hypochromic anemia. 4. Other medical problems include schizophrenia as well as hypothyroidism, Raynaud phenomenon and recurrent episode of severe hypoglycemia. TERENCE VALDIVIA MD DR: TAMI/ac JOB#: [id number] / [id number]
== END 2019-02-23 15:10 | disposition home or self-care (01) | DRG 151 ==
LOC: 5 SOUTH 12:13
PROVIDERS: ADMIT Internal Medicine; ATTEND Internal Medicine
PROC: 0DJ08ZZ Inspection of Upper Intestinal Tract, Via Natural or Artificial Opening Endoscopic (ICD-10-PCS; principal; 2019-02-22 10:30)
DX: R04.0 Epistaxis (principal); K92.0 Hematemesis; I85.00 Esophageal varices without bleeding; I78.0 Hereditary hemorrhagic telangiectasia; D50.9 Iron deficiency anemia, unspecified; E03.9 Hypothyroidism, unspecified; F20.9 Schizophrenia, unspecified; I73.00 Raynaud's syndrome without gangrene; Z91.14 Patient's other noncompliance with medication regimen; Z88.8 Allergy status to other drugs, medicaments and biological substances; Z79.899 Other long term (current) drug therapy
CPT/HCPCS: 36415; 43235; 80048; 80053; 82728; 83540; 83550; 85027; 86850; 86900; 86901; C9113; J1756; J2704; J7050; J7120; G0378; J7030

== ENCOUNTER 2020-02-18 10:23 | Inpatient (IN) | payer OTHER ==
[~2020-02-18] VITALS: Ht 180.3 cm; Wt 61.3 kg
[2020-02-18 10:20] VITALS: BP 115/66
[~2020-02-18 10:23] MED LIST changes: -LEVO88TA2 PO; +LEVO88TA70 PO
[2020-02-18] MEDS ORDERED: ONDANSETRON PF 4 MG/2 ML VIAL. IVP PRN (12:00)
[2020-02-18] MEDS ORDERED: MORPHINE SULFATE 2 MG/ML VIAL. IV PRN (12:00)
[2020-02-18] MEDS ORDERED: BISACODYL 10 MG SUPP.RECT. PR PRN (12:00)
[2020-02-18] MEDS ORDERED: ACETAMINOPHEN 325 MG TABLET. PO PRN (12:00)
[2020-02-18] MEDS ORDERED: HALOPERIDOL LACTATE 5 MG/ML VIAL. IVP PRN (12:30)
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
[2020-02-18] MEDS ORDERED: fentaNYL PF VIAL 100 MCG/2 ML VIAL IVP PRN (12:45)
[2020-02-18] MEDS: risperiDONE 1 MG TABLET. PO SCH ×2 (12:59→20:44)
[2020-02-18 15:00] VITALS: BP 119/74
--- NOTE | 2020-02-18 15:56 | RAD ---
EXAMINATION: PORTABLE CHEST 1V CLINICAL HISTORY: Reason: PICC Placement / Spl. Instructions: / History: EXAM DATE/TIME: 02/18/2020 3:12 PM COMPARISON: None FINDINGS: Lines, Tubes, and Devices: Left upper extremity PICC terminating near the cavoatrial junction. Cardiomediastinal Silhouette: Within normal limits. Lungs and Pleura: No evidence of focal airspace consolidation or pleural effusion. Pulmonary vasculature unremarkable. Bones and Soft Tissues: No acute osseous abnormality. IMPRESSION: Left upper extremity PICC in satisfactory position. No evidence of acute cardiopulmonary abnormality. Electronically signed by: Vic Bauer DO (02/18/2020 3:53 PM) [id number]
[2020-02-18 19:15] VITALS: BP 120/68
[2020-02-18] MEDS: ARIPiprazole 2 MG TABLET PO SCH (20:44)
[2020-02-18 23:45] VITALS: BP 160/77
[2020-02-19 03:37] VITALS: BP 142/54
[2020-02-19 06:09] LABS: ALBUMIN 2.8 g/dL (3.4-5.0); CALCIUM 8.2 mg/dL (8.5-10.1); CREATININE 0.9 mg/dL (0.7-1.3); GFR 88.3; POTASSIUM 4.2 mmol/L (3.5-5.1); TOTAL BILIRUBIN 0.5 mg/dL (0.2-1.0); TOTAL PROTEIN 5.7 g/dL (6.4-8.2)
[2020-02-19 06:49] LABS: BASO % 1 % (0-3); EOS # 0.2 x10^3/uL (0.0-0.7); EOS % 4 % (0-3); HEMATOCRIT 26.1 % (39.0-53.0); HEMOGLOBIN 7.7 g/dL (13.0-17.5); LYMPH % 38 % (24-48); MEAN CORPUSCULAR HEMOGLOBIN 17 pg (25-35); MEAN CORPUSCULAR HGB CONC 30 g/dL (31-37); MEAN CORPUSCULAR VOLUME 58 fL (79-100); MONO # 0.2 x10^3/uL (0.0-1.1); MONO % 4 % (0-9); NEUT # 2.8 x10^3/uL (1.8-7.7); NEUT % 54 % (31-73); PLATELET COUNT 416 x10^3/uL (140-400); RED BLOOD COUNT 4.49 x10^6/uL (4.30-5.70); RED CELL DISTRIBUTION WIDTH 20.5 % (11.5-14.5); WHITE BLOOD COUNT 5.2 x10^3/uL (4.0-11.0)
[2020-02-19 07:30] VITALS: BP 108/59
[2020-02-19] MEDS: PANTOPRAZOLE IV PUSH 40 MG VIAL. IVP SCH (08:00)
[2020-02-19] MEDS: risperiDONE 1 MG TABLET. PO SCH ×2 (08:58→20:44)
[2020-02-19 11:00] VITALS: BP 101/62
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
[2020-02-19 11:20] LABS: % EOS 3 % (0-5); % LYMPHS 14 % (24-48); % MONOS 5 % (0-10); % SEGS 78 % (35-66); PLT ESTIMATE INCREASED (ADEQUATE)
[2020-02-19 11:21] LABS: ANISOCYTOSIS MOD; HYPOCHROMIA MARKED; MICROCYTOSIS MARKED; OVALOCYTES PRESENT; POIKILOCYTOSIS PRESENT
--- NOTE | 2020-02-19 13:01 | PDOC2 ---
CONSULT Date of Consult Date of Consult DATE: 02/19/20 TIME: 12:59 Reason for Consult Reason for Consult: Iron deficiencuy anemia/Osler pagan rendu syndrome Past Medical History CENTRAL NERVOUS SYSTEM: Seizure Heme/Onc: Iron deficiency Anemia, Other Psych: Schizophrenia Endocrine: Hypothyroidism Past Surgical History Past Surgical History: Tonsillectomy, Other Family History Family History: Obesity Social History No ALCOHOL: none Drugs: None Current Medications Current Medications Current Medications Ondansetron HCl (Zofran) 4 mg PRN Q6HRS PRN IVP NAUSEA/VOMITING; Start 02/18/20 at 12:00 Morphine Sulfate (Morphine Sulfate) 1 mg PRN Q1HR PRN IV PAIN; Start 02/18/20 at 12:00 Acetaminophen (Tylenol) 650 mg PRN Q6HRS PRN PO Headaches, Temp > 101.5F; Start 02/18/20 at 12:00 Bisacodyl (Dulcolax Supp) 10 mg PRN DAILY PRN [place] CONSTIPATION; Start 02/18/20 at 12:00 Risperidone (RisperDAL) 1 mg BID PO Last administered on 02/19/20at 08:58; Start 02/18/20 at 12:30 Aripiprazole (Abilify) 2 mg QHS PO Last administered on 02/18/20at 20:44; Start 02/18/20 at 21:00 Pantoprazole Sodium (PROTONIX VIAL for IV PUSH) 40 mg DAILYAC IVP Last administered on 02/19/20at 08:00; Start 02/19/20 at 07:30 Haloperidol Lactate (Haldol Inj) 5 mg PRN Q6HRS PRN IVP AGITATION; Start 02/18/20 at 12:30 Fentanyl Citrate (Fentanyl 2ml Vial) 25 mcg PRN Q2HR PRN IVP PAIN; Start 02/18/20 at 12:45 Active Scripts Active Ferrous Sulfate 325 Mg Tablet 1 Tab PO DAILY Pantoprazole Sodium (Pantoprazole Sodium) 40 Mg Tablet.dr 40 Mg PO DAILYAC Reported Risperdal (Risperidone) 1 Mg Tablet 1 Mg PO QHS PRN [Abilify 400MG Im Inj] 400 Mg IM QMONTH Allergies Allergies: Coded Allergies: aspirin (Verified Allergy, Mild, 02/22/19) Vitals VITALS Vital Signs Date Time Temp Pulse Resp B/P (MAP) Pulse Ox O2 Delivery O2 Flow Rate FiO2 02/19/20 11:00 97.5 66 18 101/62 (75) 100 Room Air 97.5 Labs Labs Laboratory Tests Test 02/19/20 05:30 White Blood Count 5.2 x10^3/uL (4.0-11.0) Red Blood Count 4.49 x10^6/uL (4.30-5.70) Hemoglobin 7.7 g/dL (13.0-17.5) Hematocrit 26.1 % (39.0-53.0) Mean Corpuscular Volume 58 fL (79-100) Mean Corpuscular Hemoglobin 17 pg (25-35) Mean Corpuscular Hemoglobin Concent 30 g/dL (31-37) Red Cell Distribution Width 20.5 % (11.5-14.5) Platelet Count 416 x10^3/uL (140-400) Neutrophils (%) (Auto) 54 % (31-73) Lymphocytes (%) (Auto) 38 % (24-48) Monocytes (%) (Auto) 4 % (0-9) Eosinophils (%) (Auto) 4 % (0-3) Basophils (%) (Auto) 1 % (0-3) Neutrophils # (Auto) 2.8 x10^3/uL (1.8-7.7) Lymphocytes # (Auto) 2.0 x10^3/uL (1.0-4.8) Monocytes # (Auto) 0.2 x10^3/uL (0.0-1.1) Eosinophils # (Auto) 0.2 x10^3/uL (0.0-0.7) Basophils # (Auto) 0.0 x10^3/uL (0.0-0.2) Segmented Neutrophils % 78 % (35-66) Lymphocytes % 14 % (24-48) Monocytes % 5 % (0-10) Eosinophils % 3 % (0-5) Platelet Estimate Increased (ADEQUATE) Large Platelets Few Hypochromasia Marked Poikilocytosis Present Anisocytosis Mod Microcytosis Marked Ovalocytes Present Prothrombin Time 15.0 SEC (11.7-14.0) Prothromb Time International Ratio 1.2 (0.8-1.1) Sodium Level 139 mmol/L (136-145) Potassium Level 4.2 mmol/L (3.5-5.1) Chloride Level 106 mmol/L (98-107) Carbon Dioxide Level 28 mmol/L (21-32) Anion Gap 5 (6-14) Blood Urea Nitrogen 12 mg/dL (8-26) Creatinine 0.9 mg/dL (0.7-1.3) Estimated GFR (Cockcroft-Gault) 88.3 BUN/Creatinine Ratio 13 (6-20) Glucose Level 81 mg/dL (70-99) Calcium Level 8.2 mg/dL (8.5-10.1) Iron Level 10 ug/dL (65-175) Total Iron Binding Capacity 283 ug/dL (250-450) Iron Saturation 4 % (15-34) Total Bilirubin 0.5 mg/dL (0.2-1.0) Aspartate Amino Transf (AST/SGOT) 14 U/L (15-37) Alanine Aminotransferase (ALT/SGPT) 16 U/L (16-63) Alkaline Phosphatase 87 U/L (46-116) Total Protein 5.7 g/dL (6.4-8.2) Albumin 2.8 g/dL (3.4-5.0) Albumin/Globulin Ratio 1.0 (1.0-1.7) Thyroid Stimulating Hormone (TSH) 1.938 uIU/mL (0.358-3.74) Laboratory Tests Test 02/19/20 05:30 White Blood Count 5.2 x10^3/uL (4.0-11.0) Red Blood Count 4.49 x10^6/uL (4.30-5.70) Hemoglobin 7.7 g/dL (13.0-17.5) Hematocrit 26.1 % (39.0-53.0) Mean Corpuscular Volume 58 fL (79-100) Mean Corpuscular Hemoglobin 17 pg (25-35) Mean Corpuscular Hemoglobin Concent 30 g/dL (31-37) Red Cell Distribution Width 20.5 % (11.5-14.5) Platelet Count 416 x10^3/uL (140-400) Neutrophils (%) (Auto) 54 % (31-73) Lymphocytes (%) (Auto) 38 % (24-48) Monocytes (%) (Auto) 4 % (0-9) Eosinophils (%) (Auto) 4 % (0-3) Basophils (%) (Auto) 1 % (0-3) Neutrophils # (Auto) 2.8 x10^3/uL (1.8-7.7) Lymphocytes # (Auto) 2.0 x10^3/uL (1.0-4.8) Monocytes # (Auto) 0.2 x10^3/uL (0.0-1.1) Eosinophils # (Auto) 0.2 x10^3/uL (0.0-0.7) Basophils # (Auto) 0.0 x10^3/uL (0.0-0.2) Segmented Neutrophils % 78 % (35-66) Lymphocytes % 14 % (24-48) Monocytes % 5 % (0-10) Eosinophils % 3 % (0-5) Platelet Estimate Increased (ADEQUATE) Large Platelets Few Hypochromasia Marked Poikilocytosis Present Anisocytosis Mod Microcytosis Marked Ovalocytes Present Prothrombin Time 15.0 SEC (11.7-14.0) Prothromb Time International Ratio 1.2 (0.8-1.1) Sodium Level 139 mmol/L (136-145) Potassium Level 4.2 mmol/L (3.5-5.1) Chloride Level 106 mmol/L (98-107) Carbon Dioxide Level 28 mmol/L (21-32) Anion Gap 5 (6-14) Blood Urea Nitrogen 12 mg/dL (8-26) Creatinine 0.9 mg/dL (0.7-1.3) Estimated GFR (Cockcroft-Gault) 88.3 BUN/Creatinine Ratio 13 (6-20) Glucose Level 81 mg/dL (70-99) Calcium Level 8.2 mg/dL (8.5-10.1) Iron Level 10 ug/dL (65-175) Total Iron Binding Capacity 283 ug/dL (250-450) Iron Saturation 4 % (15-34) Total Bilirubin 0.5 mg/dL (0.2-1.0) Aspartate Amino Transf (AST/SGOT) 14 U/L (15-37) Alanine Aminotransferase (ALT/SGPT) 16 U/L (16-63) Alkaline Phosphatase 87 U/L (46-116) Total Protein 5.7 g/dL (6.4-8.2) Albumin 2.8 g/dL (3.4-5.0) Albumin/Globulin Ratio 1.0 (1.0-1.7) Thyroid Stimulating Hormone (TSH) 1.938 uIU/mL (0.358-3.74) Assessment/Plan Assessment/Plan Iron deficiency anemia- 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 SB invovlement could be studied with SB series and/or capsule endoscopy Plan patient defers oral irion due to his voices but is willing to proceed with IV iron SB series and possible capsule endosopcy pending response to iv iron Full noted dictated MALATHI AGUILA MD Feb 19, 2020 13:01
[2020-02-19 15:00] VITALS: BP 112/63
[2020-02-19] MEDS ORDERED: IRON SUCROSE COMPLEX 500 MG in IV NORMAL SALINE 250ML 250 ML IV ONE (16:00)
[2020-02-19 19:00] VITALS: BP 131/73
[2020-02-19] MEDS: ARIPiprazole 2 MG TABLET PO SCH (20:44)
[2020-02-19 22:49] VITALS: BP 147/66
--- NOTE | 2020-02-20 01:58 | CONS ---
DATE OF CONSULTATION: 02/19/2020 REASON FOR CONSULTATION: Iron deficiency anemia. HISTORY OF PRESENT ILLNESS: A 55-year-old male with past medical history significant for Jooda-Allyb-Rfwah syndrome, atrial fibrillation, anxiety, constipation, depression, gastroesophageal reflux disease, hypothyroidism, Raynaud's phenomenon, schizophrenia, who is admitted with diarrhea and anemia. The patient states he has not seen any blood with his movements. Previous upper scope and lower scope had been unhelpful in the past 2 years. Denies any dysphagia, odynophagia and denies any change in his weight. He is otherwise without additional complaints. PAST MEDICAL HISTORY: Wruur-Yidhs-Myqtm syndrome, atrial fibrillation, anxiety, constipation, depression, gastroesophageal reflux disease, hypothyroidism and schizophrenia. MEDICATIONS: Protonix, Abilify and risperidone. SOCIAL HISTORY: He is not a smoker, nondrinker. FAMILY HISTORY: Noncontributory. REVIEW OF SYSTEMS: Per records. PHYSICAL EXAMINATION: GENERAL: Reveals a thin, pale male. VITAL SIGNS: Temperature is 97.5, pulse 66, respiratory rate 18 and blood pressure is 101/62. HEENT: Normocephalic, atraumatic head. Pupils and extraocular muscles are not tested. Sclerae anicteric. NECK: Supple. LUNGS: Clear. CARDIOVASCULAR: Reveals an S1, S2 without S3, S4 or appreciable murmur. ABDOMEN: Reveals a soft abdomen, normal bowel sounds, without appreciable hepatosplenomegaly. EXTREMITIES: Reveals no cyanosis, clubbing or edema. LABORATORY STUDIES: Hemoglobin 7.7, hematocrit 26.1, white count 5.2, platelet count is 416,000. Sodium 138, potassium 4.2, chloride 107, bicarbonate 28, BUN 12, creatinine 0.9, glucose 81, calcium 8.2, iron 10, TIBC 283, percent sat is 4, total bilirubin 0.5, AST of 14, ALT of 16, alkaline phosphatase 87, total protein 5.7, albumin 2.8 and TSH is 1.938. 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 We will recommend since the patient is unable to take oral iron due to schizophrenia with his voices perhaps IV iron infusions may be better served, an additional small bowel series and capsule study to further assess for the stigmata of the small intestinal manifestations of his disorder. MALATHI AGUILA MD DR: ABRAM/ac JOB#: [id number] / [id number] [address]die [address]
[2020-02-20 03:07] VITALS: BP 139/65
[2020-02-20 06:46] LABS: BASO # 0.1 x10^3/uL (0.0-0.2); BASO % 1 % (0-3); EOS # 0.2 x10^3/uL (0.0-0.7); EOS % 2 % (0-3); HEMATOCRIT 30.4 % (39.0-53.0); HEMOGLOBIN 8.9 g/dL (13.0-17.5); LYMPH # 2.1 x10^3/uL (1.0-4.8); LYMPH % 28 % (24-48); MEAN CORPUSCULAR HEMOGLOBIN 17 pg (25-35); MEAN CORPUSCULAR HGB CONC 29 g/dL (31-37); MEAN CORPUSCULAR VOLUME 59 fL (79-100); MONO # 0.5 x10^3/uL (0.0-1.1); MONO % 6 % (0-9); NEUT # 4.8 x10^3/uL (1.8-7.7); NEUT % 62 % (31-73); PLATELET COUNT 491 x10^3/uL (140-400); RED CELL DISTRIBUTION WIDTH 21.3 % (11.5-14.5); WHITE BLOOD COUNT 7.6 x10^3/uL (4.0-11.0)
[2020-02-20 07:00] VITALS: BP 104/48
[2020-02-20 07:14] LABS: ALBUMIN 3.4 g/dL (3.4-5.0); CALCIUM 8.6 mg/dL (8.5-10.1); GFR 78.2; POTASSIUM 4.3 mmol/L (3.5-5.1); TOTAL BILIRUBIN 0.5 mg/dL (0.2-1.0); TOTAL PROTEIN 6.8 g/dL (6.4-8.2)
[2020-02-20] MEDS: risperiDONE 1 MG TABLET. PO SCH ×2 (08:28→20:20)
[2020-02-20] MEDS: PANTOPRAZOLE IV PUSH 40 MG VIAL. IVP SCH (08:28)
--- NOTE | 2020-02-20 09:29 | PDOC ---
Date of Service: DATE: 02/20/20 TIME: 09:25 Subjective: Subjective: Denies bleeding, denies abd pain. Says he never saw any blood but they checked his rectum and found it. Hungry. Objective: Objective: No bleeding per nurse. Vital Signs: Vital Signs Date Time Temp Pulse Resp B/P (MAP) Pulse Ox O2 Delivery O2 Flow Rate FiO2 02/20/20 07:00 97.7 72 18 104/48 (66) 100 Room Air 97.7 Labs: Laboratory Tests Test 02/20/20 06:30 White Blood Count 7.6 x10^3/uL Red Blood Count 5.20 x10^6/uL Hemoglobin 8.9 g/dL Hematocrit 30.4 % Mean Corpuscular Volume 59 fL Mean Corpuscular Hemoglobin 17 pg Mean Corpuscular Hemoglobin Concent 29 g/dL Red Cell Distribution Width 21.3 % Platelet Count 491 x10^3/uL Neutrophils (%) (Auto) 62 % Lymphocytes (%) (Auto) 28 % Monocytes (%) (Auto) 6 % Eosinophils (%) (Auto) 2 % Basophils (%) (Auto) 1 % Neutrophils # (Auto) 4.8 x10^3/uL Lymphocytes # (Auto) 2.1 x10^3/uL Monocytes # (Auto) 0.5 x10^3/uL Eosinophils # (Auto) 0.2 x10^3/uL Basophils # (Auto) 0.1 x10^3/uL Sodium Level 136 mmol/L Potassium Level 4.3 mmol/L Chloride Level 102 mmol/L Carbon Dioxide Level 25 mmol/L Anion Gap 9 Blood Urea Nitrogen 11 mg/dL Creatinine 1.0 mg/dL Estimated GFR (Cockcroft-Gault) 78.2 BUN/Creatinine Ratio 11 Glucose Level 70 mg/dL Calcium Level 8.6 mg/dL Total Bilirubin 0.5 mg/dL Aspartate Amino Transf (AST/SGOT) 14 U/L Alanine Aminotransferase (ALT/SGPT) 16 U/L Alkaline Phosphatase 105 U/L Total Protein 6.8 g/dL Albumin 3.4 g/dL Albumin/Globulin Ratio 1.0 Imaging: CXR 02/17 IMPRESSION: Left upper extremity PICC in satisfactory position. No evidence of acute cardiopulmonary abnormality. 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 -- Received iron infusion. ADAT. Consider outpt colonoscopy. Justicifation of Admission Dx: Justifications for Admission: Justification of Admission Dx: Yes JOY BUITRAGO Feb 20, 2020 09:29
[2020-02-20 10:48] VITALS: BP 117/58
--- NOTE | 2020-02-20 11:33 | NUR ---
SS following for discharge planning. SS reviewed pt chart and discussed with pt RN. Pt is currently homeless. Per report, pt was recently evicted from his apartment. Pt is currently on room air. PT/OT recommended home independent. Pt on clear liquid diet and advancing diet as tolerated. Per report, pt has history of hallucinations and schizophrenia. Pt reported to physician that the voice in his head told him not to pay his bills or take his medications. Consult for Dr. Wade requested. PAT team referral made for evaluation and possible psych placement. SS will continue to follow for discharge planning.
--- NOTE | 2020-02-20 14:16 | NUR ---
SS following up with discharge planning. Malik from PAT team met with pt and reported that pt has had services with [facility] but has not been compliant with services since September of 2019. Malik contacted pt's manager protein and was notified that if pt goes to inpatient psych and gets stabilized they will allow him to return to his housing. Malik reported that pt can go to [facility] for stabilization. Pt's RN notified. SS will continue to follow for discharge planning.
[2020-02-20 15:00] VITALS: BP 119/58
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
--- NOTE | 2020-02-20 17:00 | NUR ---
Have reviewed and agree with documentation by internet marketing coordinator and have made changes as needed
[2020-02-20 19:26] VITALS: BP 152/69
--- NOTE | 2020-02-20 20:00 | NUR ---
Assessment completed vss poc explained pt denied pain will resume care and continue to monitor pt. Will resume care and continue to monitor pt.
[2020-02-20] MEDS: ARIPiprazole 2 MG TABLET PO SCH (20:19)
[2020-02-20 22:28] VITALS: BP 132/55
[2020-02-21 02:36] VITALS: BP 178/71
[2020-02-21 07:00] VITALS: BP 111/52
[2020-02-21] MEDS ORDERED: PANTOPRAZOLE 40 MG TABLET.DR. PO SCH (07:30)
[2020-02-21] MEDS: risperiDONE 1 MG TABLET. PO SCH (09:15)
[2020-02-21 09:38] LABS: BASO % 1 % (0-3); EOS # 0.1 x10^3/uL (0.0-0.7); EOS % 3 % (0-3); HEMATOCRIT 29.4 % (39.0-53.0); HEMOGLOBIN 8.6 g/dL (13.0-17.5); LYMPH # 0.6 x10^3/uL (1.0-4.8); LYMPH % 10 % (24-48); MEAN CORPUSCULAR HEMOGLOBIN 17 pg (25-35); MEAN CORPUSCULAR HGB CONC 29 g/dL (31-37); MEAN CORPUSCULAR VOLUME 58 fL (79-100); MONO # 0.3 x10^3/uL (0.0-1.1); MONO % 5 % (0-9); NEUT # 4.8 x10^3/uL (1.8-7.7); NEUT % 82 % (31-73); PLATELET COUNT 452 x10^3/uL (140-400); RED BLOOD COUNT 5.04 x10^6/uL (4.30-5.70); RED CELL DISTRIBUTION WIDTH 20.9 % (11.5-14.5); WHITE BLOOD COUNT 5.9 x10^3/uL (4.0-11.0)
--- NOTE | 2020-02-21 10:50 | PDOC ---
Date of Service: DATE: 02/21/20 TIME: 10:47 Subjective: Subjective: Says he's doing fine, denies bleeding. Objective: Objective: No GI concerns per nurse. Vital Signs: Vital Signs Date Time Temp Pulse Resp B/P (MAP) Pulse Ox O2 Delivery O2 Flow Rate FiO2 02/21/20 07:00 98.1 76 20 111/52 (71) 96 Room Air 98.1 Labs: Laboratory Tests Test 02/21/20 09:20 White Blood Count 5.9 x10^3/uL Red Blood Count 5.04 x10^6/uL Hemoglobin 8.6 g/dL Hematocrit 29.4 % Mean Corpuscular Volume 58 fL Mean Corpuscular Hemoglobin 17 pg Mean Corpuscular Hemoglobin Concent 29 g/dL Red Cell Distribution Width 20.9 % Platelet Count 452 x10^3/uL Neutrophils (%) (Auto) 82 % Lymphocytes (%) (Auto) 10 % Monocytes (%) (Auto) 5 % Eosinophils (%) (Auto) 3 % Basophils (%) (Auto) 1 % Neutrophils # (Auto) 4.8 x10^3/uL Lymphocytes # (Auto) 0.6 x10^3/uL Monocytes # (Auto) 0.3 x10^3/uL Eosinophils # (Auto) 0.1 x10^3/uL Basophils # (Auto) 0.0 x10^3/uL PE: GEN: NAD - in restroom NEURO/PSYCH: A & O 3 A/P: 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 Outpt colonoscopy. Justicifation of Admission Dx: Justifications for Admission: Justification of Admission Dx: Yes JOY BUITRAGO Feb 21, 2020 10:50
[2020-02-21] MEDS ORDERED: ARIP2TAB3 PO (10:52)
[2020-02-21 10:56] VITALS: BP 102/60
--- NOTE | 2020-02-21 12:14 | NUR ---
SS following up with discharge planning. SS reviewed pt chart and discussed with pt RN. Pt is currently on room air and stable. PT/OT recommended home independent. Pt accepted at [facility] ([facility]), [address] [place] [id number], ; fax [phone]. SS phoned and faxed clinical to [facility]. Discharge order on the chart. Pt will discharge today and go to [facility] at 1300 via [facility] transport, [phone]. Pt's RN notified.
--- NOTE | 2020-02-21 13:48 | NUR ---
Discharge Note: TAMI PHILLIP Discharge instructions and discharge home medications reviewed with Patient and a copy given. All questions have been answered and understanding verbalized.
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
== END 2020-02-21 13:47 | disposition home or self-care (01) | DRG 377 ==
LOC: 2 NORTH 10:23
PROVIDERS: ADMIT Internal Medicine; ATTEND Internal Medicine
PROC: 02HV33Z Insertion of Infusion Device into Superior Vena Cava, Percutaneous Approach (ICD-10-PCS; principal; 2020-02-18)
DX: K55.21 Angiodysplasia of colon with hemorrhage (principal); Q25.72 Congenital pulmonary arteriovenous malformation; E44.0 Moderate protein-calorie malnutrition; D62 Acute posthemorrhagic anemia; Z68.1 Body mass index [BMI] 19.9 or less, adult; I78.0 Hereditary hemorrhagic telangiectasia; Z88.6 Allergy status to analgesic agent; I48.91 Unspecified atrial fibrillation; F41.9 Anxiety disorder, unspecified; F32.9 Major depressive disorder, single episode, unspecified; K21.9 Gastro-esophageal reflux disease without esophagitis; E03.9 Hypothyroidism, unspecified; F20.9 Schizophrenia, unspecified; K76.89 Other specified diseases of liver; I73.00 Raynaud's syndrome without gangrene; Z66 Do not resuscitate; D50.9 Iron deficiency anemia, unspecified
CPT/HCPCS: 36415; 36569; 71045; 80053; 82607; 83540; 83550; 84443; 85007; 85025; 85610; C9113; J1756; J7050; 97530-GP; G0378; J7030